=== PATIENT | male | born 1940 | race Caucasian/White ===

== ENCOUNTER → 2016-12-05 | Outpatient (CLI) | payer OTHER, BC ==
[~2016-12-05] MED LIST: ACET-1311 PO; ATV1 PO; CARV3.12 PO; CLC100 PO; CMD25 PO; CMD6 PO; CRG3125 PO; DLCS PR; ENOX40IN SQ; FINA5TAB PO; INSDGIPEN SC; INSUINJ14 SC; LANS30CA41 PO; LISI-729 PO; LISI5TAB3 PO; MAGNSUS5 PO; MCR5 PO; METF1000 PO; MORP15TA19 PO; NORT25CA PO; OXYC1TAB3 PO; PANT40TA PO; POLY335040 PO; SIMV10TA2 PO
[2016-12-05 12:47] LABS: BASO % 0.3 %; BASO ABS # 0.02 K/uL (0-0.2); EOS % 2.4 %; HEMATOCRIT 28.4 % (42-52); IG% 0.1 %; LYMPH % 32.6 %; LYMPH ABS # 2.57 K/uL (1.2-3.4); MEAN CELL VOLUME 69.1 fL (80-100); MEAN CORPUSCULAR HEMOGLOBIN 20.4 pg (25-34); MEAN CORPUSCULAR HGB CONC 29.6 g/dl (32-36); MONO % 8.1 %; NEUT % 56.5 %; PLATELET COUNT 290 K/uL (130-400); RED BLOOD COUNT 4.11 M/uL (4.7-6.1); WHITE BLOOD COUNT 7.89 K/uL (4.8-10.8)
[2016-12-05 13:26] LABS: ALT/SGPT 24 U/L (12-78); AST/SGOT 25 U/L (15-37); BLOOD UREA NITROGEN 19 mg/dl (7-18); BUN/CREATININE RATIO 17.5 (10-20); CALCIUM 8.5 mg/dl (8.5-10.1); CARBON DIOXIDE 24 mmol/L (21-32); CHLORIDE 106 mmol/L (98-107); CHOLESTEROL 107 mg/dl (0-200); CREATININE 1.07 mg/dl (0.60-1.40); GLUCOSE 142 mg/dl (70-99); SODIUM 139 mmol/L (136-145)
[2016-12-05 13:36] LABS: ALKALINE PHOSPHATASE 66 U/L (45-117); CHOLESTEROL/HDL RATIO 2.7; HDL CHOLESTEROL 39 mg/dl; LDL CHOLESTEROL CALCULATED 44 mg/dl; PROSTATE SPECIFIC ANTIGEN 0.246 ng/ml (0.000-4.000); TOTAL IRON BINDING CAPACITY 408 mcg/dl (250-450); TRIGLYCERIDES 118 mg/dl (0-150); VERY LOW DENSITY LIPOPROT CALC 24 mg/dl
[2016-12-05 13:43] LABS: COMPLETE YES; HYPERSEGMENTED POLYS 1+; MICROCYTOSIS PRESENT; OVALOCYTES 1+
--- NOTE | 2016-12-14 07:15 | CODING QUERY MEDICAL NECESSITY ---
SUPPORTING DIAGNOSIS NEEDED A supporting diagnosis is required for the test/procedure performed on this patient in order for us to be reimbursed by the patient's insurance. Please provide a supporting diagnosis for the following test/procedure listed below next to the test name along with your signature. *If there is no additional diagnosis for this patient that would support the following test/procedure please document that below next to the test/procedure. Test(s)/Procedure(s) that require a supporting diagnosis: * VITAMIN B12 DIAGNOSIS: * VIT D 1,25- DIHYDROXY DIAGNOSIS: * PSA DIAGNOSIS: Provider Signature: Date: Thank you Chelsea Gilbert [facility] Information Management Once completed, please kindly fax back to [phone] For questions please call [phone]
== END | disposition home or self-care (01) ==
LOC: C.LABMFLN 08:38
PROVIDERS: ATTEND Physician Assistant
DX: R49.0 Dysphonia (principal); D68.318 Other hemorrhagic disorder due to intrinsic circulating anticoagulants, antibodies, or inhibitors; Z51.81 Encounter for therapeutic drug level monitoring

== ENCOUNTER 2022-05-10 05:05 | Inpatient (IN) ==
--- NOTE | 2022-04-19 15:41 | PAT Medication Instructions ---
Medication Instructions Date of Service April 19, 2022 Home Medications Medication Instructions Recorded gabapentin 100 mg capsule See Rx Instructions .Route 04/21/21 (Neurontin) .COMPLEX #150 caps carvedilol 3.125 mg tablet 3.125 mg PO BID #180 tabs 07/30/21 apixaban 2.5 mg tablet (Eliquis) 2.5 mg PO BID #60 tabs 12/22/21 metformin 500 mg tablet 500 mg PO BID #180 tabs 02/08/22 gabapentin 300 mg capsule 300 mg PO TID #270 caps 02/16/22 famotidine 20 mg tablet 20 mg PO HS #90 tabs 03/11/22 lorazepam 0.5 mg tablet 0.5 mg PO DAILY PRN anxiety #2 tabs 03/18/22 tramadol 50 mg tablet 50 mg PO Q8H 30 days #90 tabs 04/07/22 trazodone 50 mg tablet 50 mg PO .qhs #30 tabs 04/07/22 gabapentin 100 mg capsule (Neurontin) See Rx Instructions Lactobacillus rhamnosus GG 10 billion cell capsule (Culturelle) 1 cap PO QAM carvedilol 3.125 mg tablet 3.125 mg PO BID apixaban 2.5 mg tablet (Eliquis) 2.5 mg PO BID metformin 500 mg tablet 500 mg PO BID gabapentin 300 mg capsule 300 mg PO TID famotidine 20 mg tablet 20 mg PO HS lorazepam 0.5 mg tablet 0.5 mg PO DAILY PRN anxiety tramadol 50 mg tablet 50 mg PO Q8H trazodone 50 mg tablet 50 mg PO .qhs cyanocobalamin (vitamin B-12) 1,000 mcg tablet 1,000 mcg PO QAM escitalopram oxalate 20 mg tablet (Lexapro) 20 mg PO QAM finasteride 5 mg tablet 5 mg PO QAM folic acid 1 mg tablet 2 mg PO QAM lisinopril 2.5 mg tablet 2.5 mg PO QAM omeprazole 40 mg capsule,delayed release 40 mg PO QAM tamsulosin 0.4 mg capsule (Flomax) 0.4 mg PO HS Continue as directed gabapentin 100 mg capsule (Neurontin) See Rx Instructions ASK your prescriber and surgeon apixaban 2.5 mg tablet (Eliquis) 2.5 mg PO BID (in order to get spinal anesthesia- will need to hold Eliquis/apixaban at least 72 hours prior to surgery) DO NOT take the morning of surgery Lactobacillus rhamnosus GG 10 billion cell capsule (Culturelle) 1 cap PO QAM metformin 500 mg tablet 500 mg PO BID cyanocobalamin (vitamin B-12) 1,000 mcg tablet 1,000 mcg PO QAM folic acid 1 mg tablet 2 mg PO QAM lisinopril 2.5 mg tablet 2.5 mg PO QAM Take morning of surgery With a small sip of water, OTHERWISE NOTHING TO EAT OR DRINK AFTER MIDNIGHT: carvedilol 3.125 mg tablet 3.125 mg PO BID gabapentin 300 mg capsule 300 mg PO TID lorazepam 0.5 mg tablet 0.5 mg PO DAILY PRN anxiety (if needed) tramadol 50 mg tablet 50 mg PO Q8H escitalopram oxalate 20 mg tablet (Lexapro) 20 mg PO QAM finasteride 5 mg tablet 5 mg PO QAM omeprazole 40 mg capsule,delayed release 40 mg PO QAM Take evening before surgery carvedilol 3.125 mg tablet 3.125 mg PO BID metformin 500 mg tablet 500 mg PO BID gabapentin 300 mg capsule 300 mg PO TID famotidine 20 mg tablet 20 mg PO HS lorazepam 0.5 mg tablet 0.5 mg PO DAILY PRN anxiety (if needed) tramadol 50 mg tablet 50 mg PO Q8H trazodone 50 mg tablet 50 mg PO .qhs tamsulosin 0.4 mg capsule (Flomax) 0.4 mg PO HS Other Notes If you have any questions please call us at [phone] or [phone] or [phone] or [phone]
--- NOTE | 2022-04-22 13:16 | Anesthesiology Consultation ---
Date of Service April 22, 2022 Assessment & Plan (1) Encounter for pre-operative examination: - COVID screening: Per assessment on 04/22: No known COVID-19 positive contacts or current COVID-19 related symptoms. Travel screen negative. Patient was Covid positive (01/2022- home test) > symptoms resolved. Covid positive home test was greater than 90 days prior to DOS. At surgeon discretion if preop Covid testing being done. - Check BSG AM DOS - Outpatient joint assessment: Pt currently scheduled for inpatient pathway. If surgeon requests review for outpatient joint pathway, patient is not recommended candidate for outpatient joint program from anesthesia standpoint. 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 A+O x3 at PAT visit 04/22/22. Patient/ state that patient signs own consents but patient's will be present DOS if needed. - PCP office visit (04/01/22): "Urinary urgency.. UA and urine culture wer normal. Will order US renal with post void residual. Treatment pending results.. IPMN (intraductal papillary mucinous neoplasm).. Has been stable for 12 years. Per radiology, no further work up or follow up needed.. Anxiety.. Much better controlled. Continue on lexapro as prescribed.. Left hip pain.. Continue to follow with orthopedics." US renal done 04/06/22- renal lesions predominantly cysts noted. Pt referred patient to urology for evaluation/management of renal cysts. - Questionable Factor VIII Inhibitor: "Questionable" per 2019 heme/onc notes. Per 09/04/2019 heme/onc note, history of hemophilia is "questionable" and patient has known hx of recurrent thrombotic events- has been on chronic anticoagulation for 30 years without bleeding issues so decision to continue anticoagulation. No more recent heme/onc evaluation. Discussed with Dr. Xiong who reviewed patient's PMHX/PSHX/past hematology evaluation. He does not feel that more updating heme/onc evaluation needed preoperatively from his perspective- to leave at anesthesiologist discretion AM DOS regarding anesthesia type (neuraxial vs general). - Hyperkalemia: Potassium 5.6 on preop labs 04/22/22. Workload note written to PCP (GREGORY) regarding elevated potassium- Awaiting response. Chart Review Chart Review: Patient seen in Pre Admission Testing Teaching & Discussion Pre-Anesthesia Teaching/Discussion Notes: Instructed NPO after midnight before surgery,except medications with 15 cc of water. Medication instructions provided according to the PAT guidelines. History Surgery Operation Date: 05/10/22 10:40 Proposed Procedures p Left Total Hip Arthroplasty - Chris Tate MD Height/Weight Height: 5 ft 4 in Weight: 75.1 kg Allergies Allergy/AdvReac Type Severity Reaction Status Date / Time bee venom protein (honey bee) Allergy Severe anaphylaxis Verified 04/19/22 13:48 No Known Drug Allergies Allergy Unknown . Verified 04/19/22 13:48 Medications Home Medications Medication Instructions Recorded Confirmed Last Taken gabapentin 100 mg capsule See Rx Instructions .Route 04/21/21 04/19/22 Unknown (Neurontin) .COMPLEX #150 caps Lactobacillus rhamnosus GG 10 1 cap PO QAM 06/15/21 04/19/22 Unknown billion cell capsule (Culturelle) carvedilol 3.125 mg tablet 3.125 mg PO BID #180 tabs 07/30/21 04/19/22 Unknown apixaban 2.5 mg tablet (Eliquis) 2.5 mg PO BID #60 tabs 12/22/21 04/19/22 Unknown metformin 500 mg tablet 500 mg PO BID #180 tabs 02/08/22 04/19/22 Unknown gabapentin 300 mg capsule 300 mg PO TID #270 caps 02/16/22 04/19/22 Unknown famotidine 20 mg tablet 20 mg PO HS #90 tabs 03/11/22 04/19/22 Unknown lorazepam 0.5 mg tablet 0.5 mg PO DAILY PRN anxiety #2 tabs 03/18/22 04/19/22 Unknown tramadol 50 mg tablet 50 mg PO Q8H 30 days #90 tabs 04/07/22 04/19/22 Unknown trazodone 50 mg tablet 50 mg PO .qhs #30 tabs 04/07/22 04/19/22 Unknown cyanocobalamin (vitamin B-12) 1,000 mcg PO QAM 04/19/22 04/19/22 Unknown 1,000 mcg tablet escitalopram oxalate 20 mg tablet 20 mg PO QAM 04/19/22 04/19/22 Unknown (Lexapro) finasteride 5 mg tablet 5 mg PO QAM 04/19/22 04/19/22 Unknown folic acid 1 mg tablet 2 mg PO QAM 04/19/22 04/19/22 Unknown lisinopril 2.5 mg tablet 2.5 mg PO QAM 04/19/22 04/19/22 Unknown omeprazole 40 mg capsule,delayed 40 mg PO QAM 04/19/22 04/19/22 Unknown release tamsulosin 0.4 mg capsule (Flomax) 0.4 mg PO HS 04/19/22 04/19/22 Unknown Past Medical History Medical History (Updated 04/22/22 @ 15:16 by Perla Michel) Arthritis 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 BPH (benign prostatic hyperplasia) Bullous emphysema Per records, pt denies Depression with anxiety Diabetes mellitus, type 2 Dyslipidemia Dysphagia Esophageal stricture 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" per 2019 heme/onc notes Per 09/04/2019 heme/onc note, history of hemophilia is "questionable" and patient has known hx of recurrent thombotic events- has been on chronic anticoagulation for 30 years without bleeding issues so decision to continue anticoagulation Gastroesophageal reflux disease [place] filter in place Placed prior to previous back surgery, subsequently removed Hearing deficit History of COVID-19 01/2022 > resolved History of deep vein thrombosis (DVT) of lower extremity Remote DVT History of head injury Per patient, remote hx of 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 A+O x3 at PAT visit 04/22/22 History of pulmonary embolism 1997 (per [facility] records) Hoarse voice quality Hyperlipidemia Hypertension Memory loss, short term Pancreas cyst Poor historian Renal cyst Spinal stenosis Stroke 2+ years ago, no current issues Urinary urgency Exercise / Class Metabolic Activity III < 4 Walking/Shop/Light housework Past Family History Family History Father No pertinent family history Other No family history of adverse response to anesthesia Denies family history of Ovarian cancer Prostate cancer Myocardial infarction Breast cancer Lung cancer Colorectal cancer Past Surgical History Surgical History H/O hernia repair H/O total ankle replacement ? SIDE History of cataract surgery History of cholecystectomy History of colonoscopy History of esophagogastroduodenoscopy (EGD) WITH ESOPHAGEAL STRETCHING History of tooth extraction Hx of LASIK Previous back surgery X 2 (LUMBAR FUSION X 2) S/P knee surgery S/P trigger finger release Status post right knee replacement Past Anesthesia History No Hx of Anesthesia Complications (except post-op nausea) and No Family Hx of Anesthesia Complications History of PONV No Hx of Motion Sickness and History of PONV (post-op nausea) Social History Smoking Status: Never smoker Do You Dip or Chew Tobacco: No Hx Alcohol Use: No Hx Substance Use: No substance use type: does not use Review of Systems Patient denies chest pain, shortness of breath, dyspnea on exertion, fever, chills, cough, wheezing, palpitations. Physical Exam Vital Signs VITALS BP 136/74 P 71 TEMP 98.0 SP02 97%RA RESP 18 PHYSICAL Full cervical extension range of motion. Full TMJ range of motion. TMD 3 finger breaths Mallampati Score 3 Dentition: upper partial Lungs: clear throughout to auscultation Cardiac: regular rate and rhythm, no murmurs noted Spine: normal Carotid arteries: negative bruit Extremities: no edema Lab Results Anesthesia Preop Results Results Anesthesia Widget: WBC 5.84 K/ul (4.8-10.8) 04/22/22 Hgb 13.3 g/dl (14.0-18.0) L 04/22/22 Hct 39.0 % (42.0-52.0) L 04/22/22 Plt 248 K/uL (130-400) 04/22/22 Na 141 mmol/L (136-145) 04/22/22 K 5.6 mmol/L (3.5-5.1) H 04/22/22 Cl 108 mmol/L (98-107) H 04/22/22 CO2 32 mmol/L (21-32) 04/22/22 BUN 21 mg/dl (6-23) 04/22/22 Creat 1.26 mg/dl (0.6-1.4) 04/22/22 Glucose Level 119 mg/dl (70-99(Fasting)) H 04/22/22 PT 11.0 Seconds (9.0-12.0) 04/22/22 PTT 27.8 Seconds (21.0-31.0) 04/22/22 INR 1.0 (0.9-1.1) 04/22/22 HA1c 5.9 % (4.5-5.6) H 04/22/22 Blood Type O Positive 04/22/22 Antibody Screen NEGATIVE 04/22/22 Testing Electrocardiogram Date: 02/18/22 NSR at 69bpm. RBBB. LAFB. Bifascicular block. No significant change compared to 06/07/2021 per pc network technician comparison (bifascicular block dating noted on 02/22/2019 EKG tracings and 12/15/2010 EKG report scanned into [facility]). Chest X-Ray Date: 04/22/22 FINDINGS: Mild interstitial thickening at the lung bases which is likely chronic. Otherwise, the lungs are clear. No pneumothorax. No pleural effusions. The heart is normal in size. Degenerative changes in the shoulders and lumbar spine. Extensive thoracolumbar spinal fusion hardware. Mild anterior wedging within the mid thoracic spine vertebral bodies is likely chronic. IMPRESSION: Chronic changes as described above. No acute cardiopulmonary process. Other Testing US renal (04/06/22) Bilateral renal lesions predominantly cyst. The 2 largest are suspected to be complicated cysts.
[2022-05-10] MEDS ORDERED: METOCLOPRAMIDE HCL 10 MG TABLET PO SCH (06:00)
[2022-05-10] MEDS ORDERED: LR 15ML/HR IV SCH (06:00)
[2022-05-10] MEDS ORDERED: TRANEXAMIC ACID 1,000 MG **IV Pre-op IV SCH (06:00)
[2022-05-10] MEDS ORDERED: LR 500ML BOLUS IV SCH (06:00)
[2022-05-10] MEDS ORDERED: ACETAMINOPHEN 500 MG TAB PO SCH (06:00)
[2022-05-10] MEDS ORDERED: FAMOTIDINE 20 MG TAB PO SCH (06:00)
[2022-05-10] MEDS ORDERED: ceFAZolin 2000MG 2,000 MG/15 ML SYR IV SCH (06:00)
[2022-05-10] MEDS ORDERED: CeleBREX 200 MG CAP PO SCH (06:00)
[2022-05-10] MEDS ORDERED: BUPIVACAINE 0.5 % 5 MG/1 ML PF 10ML VIAL ONE (06:32)
[2022-05-10] MEDS ORDERED: ONDANSETRON INJ 2 MG/ML 2 ML VIAL IV PRN ×2 (06:40→10:17)
[2022-05-10] MEDS ORDERED: ATROPINE SULFATE 0.1 MG/ML 10ML SYR IV PRN (06:40)
[2022-05-10] MEDS ORDERED: ePHEDrine sulfate 50 MG/ML AMP IV PRN (06:40)
[2022-05-10] MEDS ORDERED: BUPIVACAINE/EPINEPHRINE 0.5% MPF 1:200,000 30 ML VIAL ONE (06:40)
[2022-05-10] MEDS ORDERED: ONDANSETRON INJ 2 MG/ML 2 ML VIAL ONE (06:45)
[2022-05-10] MEDS ORDERED: fentaNYL citrate PF 100 MCG/2 ML VIAL ONE ×2 (06:45→08:41)
[2022-05-10] MEDS ORDERED: PROPOFOL IV EMULSION 10 MG/ML 20 ML VIAL IV ONE (06:45)
[2022-05-10] MEDS ORDERED: DEXAMETHASONE SOD INJ 4 MG/ML VIAL ONE (06:45)
[2022-05-10] MEDS ORDERED: LIDOCAINE 2% MPF LOCAL 5 ML VIAL ONE (06:45)
--- NOTE | 2022-05-10 06:59 | History & Physical Bridge Note ---
Date of Service May 10, 2022 History & Physical Bridge Note I have examined the patient, reviewed the History & Physical and in the interval since the performance of the History & Physical I have noted the following changes of clinical significance: no changes noted
[2022-05-10] MEDS ORDERED: hydrALAZINE HCL 20 MG/ML VIAL ONE (08:07)
--- NOTE | 2022-05-10 08:45 | Operative Report ---
PG Post Operative Report Pre & Post Diagnosis Operation Date: 05/10/22 07:00 Pre-Op Diagnosis: Left Hip Advanced Degenerative Joint Disease Post-Op Diagnosis: Left Hip Advanced Degenerative Joint Disease I identified the patient and participated in the time-out.: Yes Procedure Operation Date: 05/10/22 07:00 Actual Procedures p Left Total Hip Arthroplasty--Uncemented(Left) - Chris Tate MD Surgeon Chris Tate MD Quality Consultant Mio Sosa PA-C Estimated Blood Loss 200 Findings Consistent with Post-Op Diagnosis Operative findings revealed advanced left hip arthritis. He had grade 4 [id number] disease of the femoral head and acetabulum. He had a very stiff hip preoperatively particular with anterior hip contracture. Bone quality is fairly good. Diffuse thickening of the capsule. Fairly minimal osteophyte formation Specimens Left femoral head sent for pathology Anesthesia Type General Complications none Disposition Accompanied Patient To Recovery: No Indications Patient is an 81-year-old gentleman with multiple medical comorbidities who has a year history of increasing left hip pain discomfort is become very disabling to the point where he had use assistance device to get around. X-rays show advanced left hip arthritis. He failed conservative measures. He elected proceed with total hip arthroplasty. Description of Procedure Operative implants consist of: 1. Biomet G7 size 56 mm acetabular shell. 2. 6.5 cancellous acetabular screws 1 of 35 mm length 1 to 25 mm length. 3. [place] hole limiter. 4. Highly cross-linked polyethylene liner with a 56 mm outer diameter and 40 mm inner diameter. 5. DePuy Corail size 14 KLA femoral stem. 6. +1.5/40 mm ceramic articular ball. The patient was taken to the operating, identified, placed on the operating table supine position protectors were properly padded. IV antibiotics tried by anesthesia team. A general anesthetic was implemented as the patient did receive some anticoagulation about 48 hours ago. The patient was then placed in the right lateral decubitus position. An axillary roll was placed. A Stulberg hip positioner was used for positioning. The left hip and leg were then prepped and draped in usual sterile fashion. A posterolateral approach to the left hip was then performed through a curvilinear incision centered over the greater trochanter. Sharp dissection was Through subcutaneous tissue down below the IT band gluteal fascia the IT band gluteal fascia incised longitudinally in line with skin incision. The underlying greater bursa was excised. The piriformis and external rotators were tagged and taken off the posterior aspect hip joint capsule. Great care was taken throughout the procedure protect sciatic nerve at all times. Posterior capsulotomy was then performed leaving a large flap for later repair. Hip was internally rotated and dislocated. A femoral neck osteotomy cut was made with a Final Cut about 7 mm above the lesser trochanter. Femoral head was removed and sent for pathology. The femur was retracted anteriorly. Attention drawn the acetabulum. The acetabular labrum was excised. The pulmonary fat was excised. Sequential reaming the acetabular was then performed again with a size 45 and progressing up to 55 reamer. I did ream a little bit with a 56 reamer and then a 56 mm Biomet G7 acetabular shell was then placed in about 40 degrees lateral opening and 20 degrees of anteversion. It was fixed with two 6.5 cancellous acetabular screws. A trial liner was placed. Attention drawn the femur. The proximal femur was entered with a Instinctiv cutter followed by canal finder. I then broached begin the size 8 and progressing up to a 14. Got excellent fit at a 14. I then trialed the hip with various balls and neck lengths. I want to maximize stability to the due to his extensive spine fusion. We elected to use a 40 mm head to maximize stability. His soft tissue tension was fairly tight so we did use a +1.5 articular ball. We elect to place these implants. All trial implants were removed. [place] hole limiter was placed. Highly cross- linked polyethylene liner was placed. A size 14 KLA femoral stem was impacted in position. A +1.5/40 mm ceramic articular ball was placed. Hip was located and once again found to be stable. Attention drawn to closing. Wounds irrigated cosigns pulsatile lavage solution. We did inject locally with 60 cc of half percent Marcaine with epinephrine. The posterior capsule and external rotators were repaired through drill holes in the posterior trochanter with #2 Tycron suture. The IT band gluteal fascia then closed in 1 PDS suture in a running fashion for subcutaneous tissue then closed in 2 layers the deep layer #1 Vicryl suture subcutaneous tissues with 2-0 Dexon suture in a buried interrupted fashion the skin was closed skin kosta. The leg was then cleaned and dried and sterile dressing was Xeroform, 4 x 4's, ABD pad, foam tape was applied. The patient was then placed back in the supine position on the transport table. He was brought out of general anesthesia and transferred to the recovery room in stable condition. Patient tolerated procedure well and there were no complications. Mio Sosa, my physician miller head assistant wet process, was present for the entire procedure. His assistance was essential and required for appropriate patient positioning, prepping and draping, surgical exposure, performing the technical details of the operation, placement the implants, closure of the wound, and placement of the sterile bandage. I attest to the content of the Intraoperative Record and any orders documented therein. Any exceptions are noted below.
[2022-05-10] MEDS ORDERED: DEXTROSE 50% 50 ML SYRINGE IV PRN (08:52)
[2022-05-10] MEDS ORDERED: PHARMACY GLYCEMIC MGMT CONSULT PRN (08:52)
[2022-05-10] MEDS ORDERED: GLUCOSE 10 TAB/TUBE PO PRN (08:52)
[2022-05-10] MEDS ORDERED: GLUCAGON FOR INJ 1 MG VIAL SQ PRN (08:52)
[2022-05-10] MEDS ORDERED: CARBOHYDRATES FOR HYPOGLYCEMIA PO PRN (08:52)
[2022-05-10] MEDS ORDERED: GLUCOSE 40% GEL 15 GM TUBE PO PRN (08:52)
[2022-05-10] MEDS: fentaNYL citrate PF 100 MCG/2 ML VIAL IV PRN ×8 (08:59→09:36)
--- NOTE | 2022-05-10 09:21 | XRay Report ---
XR hip 1V LT w pelvis HISTORY: 81 years-old Male IN PACU - Post Surgical left hip arthroplasty COMPARISON: 04/14/2022 TECHNIQUE: 2 views of the moderate osteoarthritis of the right hip. Partially imaged lumbar spinal fu nathaly hardware. FINDINGS: Satisfactory alignment of left hip arthroplasty. Lateral skin kosta. Expected postoperative soft ti ssue swelling and deep tissue air. No acute fracture, dislocation or unexpected opaque foreign body i dentified. IMPRESSION: Left hip total joint arthroplasty with expected postoperative changes. ACT 112: Negative or not required by law. The above report was generated using voice recognition software. It may contain grammatical, syntax o r spelling errors. Electronically signed by: Jose Armando Martines M.D. 05/10/2022 9:19 AM
--- NOTE | 2022-05-10 09:51 | Anesthesiology Progress Note ---
Date of Service May 10, 2022 Anesthesia Post Procedure Vital Signs Vital Signs: Temp Pulse Pulse Resp BP Pulse Ox O2 Del Method 05/10/22 09:50 97.9 F 89 24 157/92 H 98 Nasal Cannula 05/10/22 09:40 94 H 25 H 158/93 H 94 Nasal Cannula 05/10/22 09:30 91 H 24 135/106 H 95 Nasal Cannula 05/10/22 09:20 90 28 H 165/93 H 90 Room Air 05/10/22 09:10 80 22 158/91 H 98 Oxymask 05/10/22 09:00 70 17 132/80 99 Oxymask 05/10/22 08:50 73 21 154/87 H 97 Oxymask 05/10/22 08:40 73 15 152/83 H 99 Oxymask 05/10/22 08:34 96.8 F L 78 18 169/90 H 100 Oxymask 05/10/22 05:39 98.2 F 74 18 143/82 H 95 Room Air O2 Flow Rate 05/10/22 09:50 2 05/10/22 09:40 2 05/10/22 09:30 2 05/10/22 09:20 05/10/22 09:10 3 05/10/22 09:00 5 05/10/22 08:50 5 05/10/22 08:40 5 05/10/22 08:34 5 05/10/22 05:39 Pain Intensity Left Hip: Pain Intensity: 4 Transfer of Care Handoff Completed per policy Notes Mental Status: alert / awake / arousable and participated in evaluation Patient Amnestic to Procedure: Yes Nausea / Vomiting: adequately controlled Pain: adequately controlled Airway Patency, RR, SpO2: stable & adequate BP & HR: stable & adequate Hydration State: stable & adequate Anesthetic Complications: no major complications apparent and Pt Satisfied with anesthetic care
[2022-05-10] MEDS ORDERED: NALOXONE HCL 0.4 MG/1 ML VIAL/CARP IV PRN (10:17)
[2022-05-10] MEDS ORDERED: bisacodyL 10 MG SUPP PR PRN (10:17)
[2022-05-10] MEDS ORDERED: ALUMINUM/MAGNESIUM SUSP 30 ML UDC PO PRN (10:17)
[2022-05-10] MEDS ORDERED: GABAPENTIN 100 MG CAP PO SCH (10:17)
[2022-05-10] MEDS ORDERED: LORazepam 0.5 MG TAB PO PRN (10:17)
[2022-05-10] MEDS ORDERED: METOCLOPRAMIDE HCL INJ 5 MG/ML 2 ML VIAL IV PRN (10:17)
[2022-05-10] MEDS ORDERED: MAGNESIUM HYDROXIDE SUSP 30 ML UDC PO PRN (10:17)
--- NOTE | 2022-05-10 11:10 | Pharmacy Report ---
Pharmacy Glycemic Short Note 2 - Date of Service May 10, 2022 - Glycemic Short BSG Results (Last 24 hours): 05/10/22 05/10/22 05:26 10:01 POC Glucose 114 H 191 H OUTPATIENT ANTIDIABETIC REGIMEN: * metformin 500mg BID * HbA1c 5.9% 04/22/22 ASSESSMENT: * Patient is a 81 YOM admitted post left hip arthroplasty. Pharmacy is consulted for glycemic management while inpatient * Patient received 8mg dexamethasone this AM, will cover with a 20 units of Lantus x1 * Patient had a slightly elevated BSG at midday, will begin a Novolog scale at a stress of 3 as outlined below to assist with the steroid induced hyperglycemia PLAN FOR INPATIENT GLYCEMIC CONTROL: * Hold outpatient oral diabetes medications * Basal insulin * Lantus 20 units SQ x1 * Bolus insulin * NovoLog per scale ACHS or Q6hrs while NPO * Goal Range: Low 110 mg/dL - High 140 mg/dL * Correction Factor: 25 mg/dL/unit * Nutritional / Prandial insulin per carb ratio of 1 unit per 8 grams CHO consumed
[2022-05-10] MEDS: SODIUM CHLORIDE 0.9% 1000ML 1,000 ML IV SCH ×2 (11:25→20:50)
[2022-05-10] MEDS: HYDROmorphone INJ 0.5 MG/0.5 ML SYR IV PRN ×2 (11:25→19:57)
[2022-05-10] MEDS ORDERED: LANTUS PER UNIT CHARGE SQ ONE (11:30)
[2022-05-10] MEDS: lisinopril 2.5 MG TAB PO SCH (11:31)
[2022-05-10] MEDS: MULTIVITAMIN TAB PO SCH (11:31)
[2022-05-10] MEDS: CYANOCOBALAMIN (B-12) 500 MCG TABLET PO SCH (11:31)
[2022-05-10] MEDS: FINASTERIDE 5 MG TAB PO SCH (11:31)
[2022-05-10] MEDS: DOCUSATE SODIUM 100 MG CAP PO SCH ×2 (11:31→20:48)
[2022-05-10] MEDS: ADVANCED PROBIOTIC 1250 MG CAPSULE PO SCH (11:31)
[2022-05-10] MEDS: FOLIC ACID 1 MG TAB PO SCH (11:32)
[2022-05-10] MEDS: INSULIN ASPART PER UNIT CHARGE SC SCH ×3 (12:41→20:55)
[2022-05-10] MEDS ORDERED: TRANEXAMIC ACID / 0.7% NACL 1,000 MG/100 ML BAG IV SCH (14:45)
[2022-05-10] MEDS: GABAPENTIN 300 MG CAP PO SCH ×2 (15:27→20:48)
[2022-05-10] MEDS: ACETAMINOPHEN 500 MG TAB PO SCH ×2 (15:27→21:55)
[2022-05-10] MEDS: ceFAZolin 1000MG 1,000 MG/7.5 ML SYR IV SCH ×2 (15:48→22:45)
[2022-05-10] MEDS: traMADol HCL 50 MG TABLET PO PRN (16:35)
[2022-05-10] MEDS: SENNA 8.6 MG TAB PO SCH (20:48)
[2022-05-10] MEDS: traZODone HCL 50 MG TAB PO SCH (20:49)
[2022-05-10] MEDS: TAMSULOSIN HCL 0.4 MG CAP PO SCH (20:49)
[2022-05-10] MEDS: FAMOTIDINE 20 MG TAB PO SCH (20:49)
[2022-05-10] MEDS: carvediloL 3.125 MG TAB PO SCH (20:49)
[2022-05-11] MEDS: ACETAMINOPHEN 500 MG TAB PO SCH ×3 (05:20→21:44)
[2022-05-11] MEDS: traMADol HCL 50 MG TABLET PO PRN ×2 (06:59→17:34)
[2022-05-11] MEDS: PANTOprazole 40 MG TAB PO SCH (07:30)
[2022-05-11] MEDS: APIXABAN 2.5 MG TAB PO SCH ×2 (07:30→21:45)
[2022-05-11] MEDS: carvediloL 3.125 MG TAB PO SCH ×2 (07:30→21:45)
[2022-05-11] MEDS: ADVANCED PROBIOTIC 1250 MG CAPSULE PO SCH (07:30)
[2022-05-11] MEDS: GABAPENTIN 300 MG CAP PO SCH ×3 (07:31→21:44)
[2022-05-11] MEDS: FINASTERIDE 5 MG TAB PO SCH (07:31)
[2022-05-11] MEDS: ESCITALOPRAM OXALATE 20 MG TAB PO SCH (07:31)
[2022-05-11] MEDS: DOCUSATE SODIUM 100 MG CAP PO SCH ×2 (07:31→21:45)
[2022-05-11] MEDS: MULTIVITAMIN TAB PO SCH (07:32)
[2022-05-11] MEDS: FOLIC ACID 1 MG TAB PO SCH (07:32)
[2022-05-11] MEDS: CYANOCOBALAMIN (B-12) 500 MCG TABLET PO SCH (07:32)
[2022-05-11] MEDS: lisinopril 2.5 MG TAB PO SCH (07:32)
[2022-05-11 07:56] LABS: Basophils # (auto) 0.03 K/uL (0-0.2); Basophils % (auto) 0.3 %; Eosinophils # (auto) 0.03 K/uL (0-0.50); Eosinophils % (auto) 0.3 %; Hematocrit (blood only) 30.1 % (42.0-52.0); Hemoglobin 10.5 g/dl (14.0-18.0); Immature Granulocytes # (auto) 0.04 K/uL (0.01-0.20); Immature Granulocytes % (auto) 0.4 %; Lymphocytes # (auto) 1.67 K/uL (1.2-3.4); Lymphocytes % (auto) 17.3 %; Mean Corpuscular Hgb Conc 34.9 g/dL (32.0-36.0); Mean Corpuscular Volume 91.8 fL (80.0-100.0); Mean Platelet Volume 9.7 fL (9.4-12.4); Monocytes # (auto) 0.94 K/uL (0.11-0.59); Monocytes % (auto) 9.7 %; Neutrophils # (auto) 6.97 K/uL (1.40-6.50); Platelet Count 173 K/uL (130-400); RDW Coefficient of Variation 11.8 % (11.5-14.5); RDW Standard Deviation 39.8 fL (36.4-46.3); Red Blood Count 3.28 M/uL (4.70-6.10); White Blood Count 9.68 K/ul (4.8-10.8)
[2022-05-11 08:25] LABS: BUN Creatinine Ratio 18.6 (10-20); Calcium 7.9 mg/dl (8.6-10.3); Creatinine Clr Calc Pharmacy 45.1 ml/min; Est GFR (African American) 66.2 ml/min; Est GFR (Non-African American) 57.1 ml/min
[2022-05-11] MEDS: INSULIN ASPART PER UNIT CHARGE SC SCH ×4 (09:23→21:41)
[2022-05-11] MEDS: metFORMIN HCL 500 MG TAB PO SCH ×2 (10:43→17:31)
--- NOTE | 2022-05-11 12:20 | Pharmacy Report ---
Pharmacy Glycemic Short Note 2 - Date of Service May 11, 2022 - Glycemic Short BSG Results (Last 24 hours): 05/10/22 05/10/22 05/11/22 17:18 20:30 07:00 Glucose 142 H POC Glucose 168 H 176 H 05/11/22 05/11/22 07:43 12:03 Glucose POC Glucose 157 H 144 H OUTPATIENT ANTIDIABETIC REGIMEN: * metformin 500mg BID HbA1c 5.9% 04/22/22 ASSESSMENT: 05/11/22: * Patient refused basal insulin and intermittently refused bolus insulin yesterday * BSGs mildly elevated with minimal insulin administration yesterday * Renal function appears to be at/near baseline * Will d/c ongoing basal insulin and carb coverage - will utilize correctional Novolog and restart patient's metformin 05/10/22: * Patient is a 81 YOM admitted post left hip arthroplasty. Pharmacy is consulted for glycemic management while inpatient * Patient received 8mg dexamethasone this AM, will cover with a 20 units of Lantus x1 * Patient had a slightly elevated BSG at midday, will begin a Novolog scale at a stress of 3 as outlined below to assist with the steroid induced hyperglycemia PLAN FOR INPATIENT GLYCEMIC CONTROL: * Metformin 500 mg PO BIDM * Basal insulin * Hold * Bolus insulin * NovoLog per scale ACHS or Q6hrs while NPO * Goal Range: Low 110 mg/dL - High 140 mg/dL * Correction Factor: 25 mg/dL/unit * No carb coverage
--- NOTE | 2022-05-11 14:25 | Progress Notes ---
SUBJECTIVE: An 81-year-old gentleman, postoperative day 1 from a left hip replacement. He is doing pretty well. Continues to have some soreness in his hip area. No chest pain or shortness of breath. Not feeling dizzy or lightheaded. OBJECTIVE: VITAL SIGNS: Temperature 36.6. Vital signs are stable. GENERAL: Shows a pleasant, elderly male. He is sitting up in bed and looks quite comfortable. EXTREMITIES: Examination of the left leg reveals the dressing to be clean, dry and intact. Leg talia ths were equal. He can dorsiflex and plantarflex his foot appropriately. He is neurologically intac t. LABORATORY DATA: Hemoglobin 10.5, hematocrit 30.1. Electrolytes are stable. ASSESSMENT: An 81-year-old gentleman with multiple medical comorbidities including some underlying c losed head trauma and dementia. Postoperative day 1 from a left total hip replacement. Hip seems to be doing well. His hip is located. He is neurologically intact. He is hoping to go to [facility]. First choice is [facility]. Apparently, he needs a 3-night stay. PLAN: 1. DVT prophylaxis including thigh-high TEDs, SCDs. We will start him back on his anticoagulation t peewee. 2. PT/OT. He can weight bear as tolerated. Left total hip protocol. 3. Pain control, doing okay with current pain regimen. We will limit any narcotics to avoid confusi on issues. 4. Disposition. We will work on placement. He is hoping to go to [facility]. He needs a 3-night hospital stay. Hopeful discharge on Monday. Job ID: [id number]
[2022-05-11] MEDS: TAMSULOSIN HCL 0.4 MG CAP PO SCH (21:45)
[2022-05-11] MEDS: traZODone HCL 50 MG TAB PO SCH (21:45)
[2022-05-11] MEDS: FAMOTIDINE 20 MG TAB PO SCH (21:46)
[2022-05-11] MEDS: SENNA 8.6 MG TAB PO SCH (21:46)
[2022-05-12] MEDS: traMADol HCL 50 MG TABLET PO PRN ×2 (00:44→07:49)
[2022-05-12] MEDS: ACETAMINOPHEN 500 MG TAB PO SCH (06:02)
--- NOTE | 2022-05-12 08:39 | Progress Notes ---
DATE OF SERVICE: 05/12/2022. SUBJECTIVE: An 81-year-old gentleman, postoperative day 2 from a left total hip replacement. He is doing pretty well this morning. Pain seems to be getting better. Denies any chest pain or shortness of breath. Not feeling dizzy or lightheaded. OBJECTIVE: VITAL SIGNS: Temperature is 36.4. Vital signs are stable. GENERAL: Shows a pleasant, elderly male. He is sitting up in his bedside chair and looks pretty com fortable this morning. EXTREMITIES: Examination of the left hip and leg reveals the leg lengths to be equal. Dressing is c lean, dry and intact. Fairly mild swelling. He can dorsiflex and plantarflex his foot appropriately . ASSESSMENT: An 81-year-old gentleman with multiple medical comorbidities, postop day 2 from a left t otal hip replacement, doing reasonably well. Pain seems to be improved. He is neurologically intact . Hip is located. PLAN: 1. DVT prophylaxis includes thigh-high TEDs, SCDs and back on his Eliquis 2.5 mg twice a day. 2. PT/OT. He can fully weightbear as tolerated on this left hip. 3. Pain control, doing okay with current pain regimen. We really want to limit narcotics to avoid c onfusion. 4. Disposition: He is planning to be discharged to rehab. He needs a 3-night hospital stay and hop efully discharge tomorrow if bed available. Job ID: [id number]
[2022-05-12] MEDS: INSULIN ASPART PER UNIT CHARGE SC SCH ×2 (08:53→12:34)
[2022-05-12] MEDS: FOLIC ACID 1 MG TAB PO SCH (08:54)
[2022-05-12] MEDS: MULTIVITAMIN TAB PO SCH (08:54)
[2022-05-12] MEDS: metFORMIN HCL 500 MG TAB PO SCH (08:54)
[2022-05-12] MEDS: lisinopril 2.5 MG TAB PO SCH (08:54)
[2022-05-12] MEDS: ADVANCED PROBIOTIC 1250 MG CAPSULE PO SCH (08:55)
[2022-05-12] MEDS: DOCUSATE SODIUM 100 MG CAP PO SCH (08:55)
[2022-05-12] MEDS: ESCITALOPRAM OXALATE 20 MG TAB PO SCH (08:55)
[2022-05-12] MEDS: FINASTERIDE 5 MG TAB PO SCH (08:55)
[2022-05-12] MEDS: carvediloL 3.125 MG TAB PO SCH (08:55)
[2022-05-12] MEDS: CYANOCOBALAMIN (B-12) 500 MCG TABLET PO SCH (08:55)
[2022-05-12] MEDS: GABAPENTIN 300 MG CAP PO SCH (08:55)
[2022-05-12] MEDS: APIXABAN 2.5 MG TAB PO SCH (08:55)
[2022-05-12] MEDS: PANTOprazole 40 MG TAB PO SCH (08:55)
== END 2022-05-12 12:55 | DRG 470 ==
LOC: ASU 05:05 → 3E 08:42